=== PATIENT | male | born 2000 | race Caucasian/White ===

== ENCOUNTER 2021-07-04 02:29 | Inpatient (IN) | payer OTHER ==
[2021-07-04] MEDS ORDERED: Fentanyl 100 MCG/2 ML VIAL ONE ×2 (02:38→03:44)
[2021-07-04] MEDS ORDERED: Ondansetron PF 4 MG/2 ML Vial ONE ×2 (02:38→10:10)
[2021-07-04 02:57] LABS: #Basophils 0.1 thou/uL (0.0-0.2); #Eosinphils 0.1 thou/uL (0.0-0.7); #Lymphocytes 2.9 thou/uL (1.20-3.40); #Monocytes 0.6 thou/uL (0.11-0.59); #Neutrophils 2.9 thou/uL (1.40-6.50); %Basophils 1.1 % (0.0-1.0); %Lymphocytes 44.1 % (21.0-51.0); %Monocytes 8.5 % (0.0-10.0); %Neutrophils 44.3 % (42.0-75.0); Hemoglobin 14.4 g/dL (14.0-18.0); Mean Corpuscular HGB CONC 34.9 g/dL (32.0-36.0); Mean Corpuscular Hemoglobin 33.3 pg (27.0-31.0); Mean Corpuscular Volume 95.6 fL (78.0-98.0); Mean Platelet Volume 6.9 fL (7.4-10.4); Platelet Count 243 thou/uL (130-400); Red Blood Cell (RBC) Count 4.32 mill/uL (4.70-6.10); White Blood Cell (WBC) Count 6.6 thou/uL (4.8-10.8)
[2021-07-04] MEDS ORDERED: Dextrose 50% Abboject 50 ML SYRINGE SLOW IVP PRN (03:21)
[2021-07-04] MEDS ORDERED: Morphine 4 MG/ML VIAL SLOW IVP PRN ×2 (03:21→05:01)
[2021-07-04] MEDS ORDERED: Dextrose 5% in Water 1,000 ML IV PRN (03:21)
[2021-07-04] MEDS ORDERED: Ondansetron PF 4 MG/2 ML Vial IVP PRN (03:21)
[2021-07-04] MEDS ORDERED: Ondansetron ODT 4 MG TAB PO PRN (03:21)
[2021-07-04] MEDS ORDERED: traMADol HCl 50 MG TAB PO PRN (03:31)
[2021-07-04] MEDS ORDERED: Cyclobenzaprine 10 MG TAB PO PRN (03:31)
[2021-07-04 04:06] LABS: ALT (SGPT) 55 U/L (8-55); AST (SGOT) 46 U/L (5-34); Albumin 4.6 g/dL (3.5-5.0); Alkaline Phosphatase 81 U/L (40-110); Anion Gap 12 mmol/L (10-20); BUN (Urea Nitrogen) 11 mg/dL (8.9-20.6); Bilirubin, Total 0.8 mg/dL (0.2-1.2); Calc. Creatinine Clearance 0 mL/min (70-130); Carbon Dioxide 25 mmol/L (22-29); Chloride 105 mmol/L (98-107); Globulin 2.6 g/dL (2.4-3.5); Glucose 119 mg/dL (70-105); Potassium 3.4 mmol/L (3.5-5.1); Protein, Total 7.2 g/dL (6.0-8.3); Sodium 139 mmol/L (136-145)
[2021-07-04 05:01] VITALS: BMI 26.7
[2021-07-04] MEDS: Ketorolac Tromethamine 30 MG/ML VIAL IVP SCH ×4 (05:15→21:11)
[2021-07-04] MEDS: traMADol HCl 50 MG TAB PO SCH ×4 (05:16→23:18)
[2021-07-04] MEDS: Acetaminophen 500 MG TAB PO SCH ×4 (05:17→23:18)
[2021-07-04] MEDS: Gabapentin 100 MG CAP PO SCH ×3 (05:19→21:10)
[2021-07-04] MEDS: Morphine 4 MG/ML VIAL ONE ×2 (05:41→17:54)
[2021-07-04 05:42] LABS: SARS-CoV-2 NAA Rapid Test Not Detected (NotDetected)
[2021-07-04] MEDS: Sodium Chloride 0.9% 1,000 ML IV SCH ×3 (05:42→14:02)
[2021-07-04 07:06] LABS: Phosphorus 2.4 mg/dL (2.3-4.7)
[2021-07-04] MEDS ORDERED: ceFAZolin 2 GM/Dextrose 50 ML 2 GM in Premix Bag 1 BAG IVPB SCH (07:15)
[2021-07-04] MEDS ORDERED: ceFAZolin (BATCH) 2 GM in Premix Bag 1 BAG IVPB SCH (07:30)
[2021-07-04] MEDS ORDERED: ceFAZolin (BATCH) 2 GM/100 ML BAG ONE (08:47)
[2021-07-04] MEDS ORDERED: Famotidine 20 MG TAB PO SCH (09:00)
[2021-07-04] MEDS ORDERED: Fentanyl 250 MCG/5 ML VIAL ONE (09:37)
[2021-07-04] MEDS ORDERED: Midazolam HCl 2 mg/2 ml Vial ONE (09:38)
[2021-07-04] MEDS ORDERED: Glycopyrrolate 0.2 MG/ML 5 ML SYRINGE ONE (10:10)
[2021-07-04] MEDS ORDERED: Dexamethasone 20 MG/5 ML VIAL ONE (10:10)
[2021-07-04] MEDS ORDERED: Ketorolac Tromethamine 30 MG/ML VIAL ONE (10:10)
[2021-07-04] MEDS ORDERED: Lidocaine 1% PF 5 ML VIAL ONE (10:10)
[2021-07-04] MEDS ORDERED: Rocuronium Bromide 10 MG/ML (10ML VIAL) ONE (10:10)
[2021-07-04] MEDS ORDERED: PROPOFOL 200 MG/20 ML VIAL ONE (10:10)
[2021-07-04] MEDS: Senokot S 8.6-50 MG TAB PO SCH ×2 (11:03→21:12)
[2021-07-04] MEDS: Famotidine 20 MG TAB PO SCH ×2 (12:28→21:11)
[2021-07-04] MEDS ORDERED: Potassium Phosphate 30 MMOL in Sodium Chloride 0.9% 250 ML 250 ML IVPB SCH (12:30)
[2021-07-04] MEDS: Polyethylene Glycol 3350 17 GM Packet PO SCH (13:54)
[2021-07-04] MEDS: ceFAZolin (BATCH) 2 GM in Premix Bag 1 BAG IVPB SCH (17:53)
[2021-07-05] MEDS: ceFAZolin (BATCH) 2 GM in Premix Bag 1 BAG IVPB SCH ×2 (01:53→09:49)
[2021-07-05] MEDS: Ketorolac Tromethamine 30 MG/ML VIAL IVP SCH (04:16)
[2021-07-05] MEDS: Acetaminophen 500 MG TAB PO SCH ×4 (05:51→23:50)
[2021-07-05] MEDS: Gabapentin 100 MG CAP PO SCH (05:52)
[2021-07-05] MEDS: traMADol HCl 50 MG TAB PO SCH ×4 (05:53→23:51)
[2021-07-05 06:19] LABS: Anion Gap 13 mmol/L (10-20); BUN (Urea Nitrogen) 9 mg/dL (8.9-20.6); Calc. Creatinine Clearance 152 mL/min (70-130); Calcium 9.2 mg/dL (7.8-10.44); Carbon Dioxide 24 mmol/L (22-29); Chloride 101 mmol/L (98-107); Glucose 131 mg/dL (70-105); Magnesium 1.7 mg/dL (1.6-2.6); Phosphorus 2.8 mg/dL (2.3-4.7); Potassium 3.9 mmol/L (3.5-5.1); Sodium 134 mmol/L (136-145)
[2021-07-05 06:47] LABS: Band 14 % (5-11); Lymphocytes 20 % (21-51); MDiff Complete? YES; Mean Corpuscular HGB CONC 33.8 g/dL (32.0-36.0); Mean Corpuscular Volume 97.6 fL (78.0-98.0); Mean Platelet Volume 7.2 fL (7.4-10.4); Monocytes 18 % (0-10); Neutrophil 48 % (42-75); Platelet Count 203 thou/uL (130-400); RBC Distribution Width 11.9 % (11.5-14.5); Red Blood Cell (RBC) Count 3.95 mill/uL (4.70-6.10); White Blood Cell (WBC) Count 3.5 thou/uL (4.8-10.8)
[2021-07-05] MEDS ORDERED: Gabapentin 100 MG CAP PO SCH (09:36)
[2021-07-05] MEDS ORDERED: Magnesium 2 GM/50 ML(in water) 2 GM in Premix Bag 1 BAG IVPB SCH (09:45)
[2021-07-05] MEDS ORDERED: PHOS-NAK 1 PKT PACK PO SCH (09:45)
[2021-07-05] MEDS: Senokot S 8.6-50 MG TAB PO SCH ×2 (09:48→19:28)
[2021-07-05] MEDS: Polyethylene Glycol 3350 17 GM Packet PO SCH (09:48)
[2021-07-05] MEDS: Famotidine 20 MG TAB PO SCH ×2 (09:51→20:10)
[2021-07-05] MEDS: Gabapentin 300 MG CAP PO SCH ×2 (14:24→21:35)
[2021-07-05] MEDS: Bacitracin 1 PK TOP SCH (20:10)
[2021-07-05] MEDS ORDERED: Enoxaparin Sodium 40 MG/0.4 ML SYRINGE SC SCH (21:00)
[2021-07-06] MEDS: Gabapentin 300 MG CAP PO SCH (05:15)
[2021-07-06] MEDS: traMADol HCl 50 MG TAB PO SCH ×2 (05:15→11:13)
[2021-07-06] MEDS: Acetaminophen 500 MG TAB PO SCH ×2 (05:16→11:12)
[2021-07-06 06:35] LABS: #Lymphocytes 2.2 thou/uL (1.20-3.40); #Monocytes 0.6 thou/uL (0.11-0.59); #Neutrophils 2.1 thou/uL (1.40-6.50); %Basophils 0.4 % (0.0-1.0); %Lymphocytes 43.8 % (21.0-51.0); %Monocytes 12.2 % (0.0-10.0); %Neutrophils 42.7 % (42.0-75.0); Hemoglobin 12.2 g/dL (14.0-18.0); Mean Corpuscular HGB CONC 33.5 g/dL (32.0-36.0); Mean Corpuscular Hemoglobin 33.4 pg (27.0-31.0); Mean Corpuscular Volume 99.5 fL (78.0-98.0); Mean Platelet Volume 7.6 fL (7.4-10.4); Platelet Count 172 thou/uL (130-400); Red Blood Cell (RBC) Count 3.66 mill/uL (4.70-6.10)
[2021-07-06 06:54] LABS: Anion Gap 13 mmol/L (10-20); BUN (Urea Nitrogen) 11 mg/dL (8.9-20.6); Calc. Creatinine Clearance 158 mL/min (70-130); Calcium 8.8 mg/dL (7.8-10.44); Carbon Dioxide 27 mmol/L (22-29); Chloride 102 mmol/L (98-107); Glucose 96 mg/dL (70-105); Magnesium 2.1 mg/dL (1.6-2.6); Phosphorus 2.8 mg/dL (2.3-4.7); Potassium 3.7 mmol/L (3.5-5.1); Sodium 138 mmol/L (136-145)
[2021-07-06] MEDS: Senokot S 8.6-50 MG TAB PO SCH (08:22)
[2021-07-06] MEDS: Famotidine 20 MG TAB PO SCH (08:22)
[2021-07-06] MEDS: Bacitracin 1 PK TOP SCH (08:22)
[2021-07-06] MEDS: Polyethylene Glycol 3350 17 GM Packet PO SCH (08:22)
[2021-07-06 11:49] VITALS: BP 153/88; TEMP 98.5
== END 2021-07-06 14:15 | disposition home or self-care (01) | DRG 481 ==
LOC: ERS 02:29 → SURG B 03:28
PROVIDERS: ADMIT Surgery; ATTEND Surgery
PROC: 0QSB06Z Reposition Right Lower Femur with Intramedullary Internal Fixation Device, Open Approach (ICD-10-PCS; principal; 2021-07-04)
DX: S72.401A Unspecified fracture of lower end of right femur, initial encounter for closed fracture (principal); D62 Acute posthemorrhagic anemia; V03.99XA Pedestrian with other conveyance injured in collision with car, pick-up truck or van, unspecified whether traffic or nontraffic accident, initial encounter; Z20.822 Contact with and (suspected) exposure to COVID-19; D64.9 Anemia, unspecified; Z90.49 Acquired absence of other specified parts of digestive tract; F17.210 Nicotine dependence, cigarettes, uncomplicated
CPT/HCPCS: 36415; 71045; 76000; 80048; 80053; 83735; 84100; 85025; 96374; 96375; 96376; C1713; J0690; J1100; J1650; J1885; J2250; J2270; J2405; J2704; J3010; J3475; J7050; U0002